=== PATIENT | male | born 1990 | race African-American/Black ===

== ENCOUNTER 2020-10-18 08:00 | Emergency (ER) | payer MEDICAID ==
[~2020-10-18] VITALS: Ht 170.2 cm; Wt 68.0 kg
[2020-10-18 09:36] LABS: CLARITY URINE CLEAR (CLEAR); COLOR URINE YELLOW (YELLOW); KETONES URINE NEGATIVE (NEGATIVE); LEUKOCYTE ESTERASE URINE NEGATIVE (NEGATIVE); NITRITE URINE NEGATIVE (NEGATIVE); OCCULT BLOOD URINE NEGATIVE (NEGATIVE); PROTEIN URINE NEGATIVE (NEGATIVE); SPECIFIC GRAVITY URINE 1.025 (1.005-1.030)
[2020-10-18] MEDS ORDERED: ACETAMINOPHEN 325MG TABLET PO ONE (09:45)
[2020-10-18 10:11] VITALS: BP 111/71
[2020-10-20 04:07] LABS: NEISSERIA GONORRHOEAE NAA Negative (Negative)
== END 2020-10-18 10:12 | disposition home or self-care (01) ==
LOC: ER 08:00
DX: S30.22XA Contusion of scrotum and testes, initial encounter (principal); N43.3 Hydrocele, unspecified; X58.XXXA Exposure to other specified factors, initial encounter; Y93.89 Activity, other specified; Y92.89 Other specified places as the place of occurrence of the external cause; Y99.8 Other external cause status; Z88.0 Allergy status to penicillin
CPT/HCPCS: 76870; 81003; 87491; 87591; 93976; 99284

== ENCOUNTER 2020-11-19 10:09 | Emergency (ER) | payer MEDICAID ==
[~2020-11-19] VITALS: Ht 170.2 cm; Wt 70.0 kg
[2020-11-19 10:47] VITALS: BP 126/79
[2020-11-19] MEDS ORDERED: KETOROLAC 60MG/2ML VIAL IM STA (10:56)
[2020-11-19] MEDS ORDERED: T3 PO (12:11)
[2020-11-19] MEDS ORDERED: IBUP-2030 PO (12:11)
== END 2020-11-19 13:15 | disposition home or self-care (01) ==
LOC: ER 10:09
DX: S62.666A Nondisplaced fracture of distal phalanx of right little finger, initial encounter for closed fracture (principal); Z88.0 Allergy status to penicillin; Z79.899 Other long term (current) drug therapy; W10.8XXA Fall (on) (from) other stairs and steps, initial encounter; Y93.01 Activity, walking, marching and hiking; Y92.89 Other specified places as the place of occurrence of the external cause; Y99.8 Other external cause status
CPT/HCPCS: 73130; 96372; 99283

== ENCOUNTER 2021-04-25 18:23 | Emergency (ER) | payer MEDICAID ==
[~2021-04-25] VITALS: Ht 170.2 cm; Wt 70.0 kg
[~2021-04-25 18:23] MED LIST: IBUP-2030 PO; T3 PO
[2021-04-25 19:27] VITALS: BP 113/94
[2021-04-25] MEDS ORDERED: IBUP-2028 MT (20:39)
== END 2021-04-25 21:05 | disposition home or self-care (01) ==
LOC: ER 18:23
DX: U07.1 COVID-19 (principal); B34.9 Viral infection, unspecified; J45.909 Unspecified asthma, uncomplicated; R11.2 Nausea with vomiting, unspecified; M79.10 Myalgia, unspecified site; Z88.0 Allergy status to penicillin; Z79.899 Other long term (current) drug therapy
CPT/HCPCS: 99283; C9803; U0003; U0005